=== PATIENT | female | born 1995 | race Caucasian/White ===

== ENCOUNTER 2019-03-14 18:40 | Emergency (ER) | payer OTHER ==
[~2019-03-14] VITALS: Ht 180.3 cm; Wt 69.4 kg
[2019-03-14 19:06] LABS: URINE BILIRUBIN NEGATIVE (Negative); URINE BLOOD NEGATIVE (Negative); URINE COLOR YELLOW; URINE GLUCOSE-RANDOM* NEGATIVE (Negative); URINE KETONES 3+ (Negative); URINE LEUKOCYTES-REFLEX TRACE (Negative); URINE NITRITE-REFLEX NEGATIVE (Negative); URINE PROTEIN (DIPSTICK) NEGATIVE (Negative); URINE UROBILINOGEN 0.2 E.U./dl (0.2-1.0)
[2019-03-14 19:07] LABS: URINE CLARITY HAZY
[2019-03-14 19:08] LABS: URINE REDUCING SUBSTANCE NEGATIVE
[2019-03-14 20:23] LABS: ABSOLUTE NEUTROPHILS 8.8 thou/uL (1.4-8.2); BASOPHILS 0.5 % (0.0-2.0); EOSINOPHILS 0.1 % (0.0-3.0); HEMATOCRIT 37.8 % (37.0-47.0); HEMOGLOBIN 12.9 gm/dL (12.0-15.0); LYMPHOCYTES 18.7 % (24.0-44.0); MCHC 34.1 g/dL (28.0-37.0); MONOCYTES 4.6 % (1.0-8.0); PLATELET COUNT 217 thou/uL (150-400); POLYS 76.1 % (36.0-66.0); RBC 4.29 mil/uL (4.20-5.00); RDW 12.8 % (10.5-14.5); WBC 11.5 thou/uL (4.0-11.0)
[2019-03-14 20:33] LABS: CALCIUM 10.8 mg/dL (8.5-10.1); CREATININE 0.7 mg/dL (0.6-1.0); POTASSIUM 3.6 mmol/L (3.5-5.1)
[2019-03-14 20:35] LABS: ALBUMIN 4.2 g/dL (3.4-5.0); TOTAL BILIRUBIN 0.4 mg/dL (<0.1-1.0); TOTAL PROTEIN 7.6 g/dL (6.4-8.2)
[2019-03-14] MEDS ORDERED: ONDANSETRON HCL4 M2 PO (21:55)
[2019-03-14] MEDS ORDERED: OMEPRAZOLE20 M1 PO (21:55)
[2019-03-14 22:11] VITALS: BP 128/68
[2019-03-15] MEDS ORDERED: ACETAMINOPHEN-1 EAC1 PO (21:46)
== END 2019-03-14 22:12 | disposition home or self-care (01) ==
LOC: ER 18:40
PROVIDERS: Emergency Medicine; Physician Assistant
DX: O99.611 Diseases of the digestive system complicating pregnancy, first trimester (principal); K29.70 Gastritis, unspecified, without bleeding; Z3A.00 Weeks of gestation of pregnancy not specified

== ENCOUNTER 2019-03-15 19:42 | Emergency (ER) | payer OTHER ==
[~2019-03-15] VITALS: Ht 175.3 cm; Wt 69.4 kg
[~2019-03-15 19:42] MED LIST: OMEPRAZOLE20 M1 PO; ONDANSETRON HCL4 M2 PO
[2019-03-15] MEDS ORDERED: ACETAMINOPHEN-1 EAC1 PO (21:46)
[2019-03-15 22:02] VITALS: BP 122/80
== END 2019-03-15 22:05 | disposition home or self-care (01) ==
LOC: ER 19:42
DX: O9A.211 Injury, poisoning and certain other consequences of external causes complicating pregnancy, first trimester (principal); S61.411A Laceration without foreign body of right hand, initial encounter; Z3A.09 9 weeks gestation of pregnancy; W25.XXXA Contact with sharp glass, initial encounter; Y93.89 Activity, other specified; Y92.89 Other specified places as the place of occurrence of the external cause; Y99.8 Other external cause status